=== PATIENT | female | born 1995 | race Caucasian/White ===

== ENCOUNTER 2018-01-09 15:43 | Emergency (ER) | payer OTHER ==
[2018-01-09] MEDS ORDERED: 0.9 % SODIUM CHLORIDE 1,000 ML IV SCH (16:00)
[2018-01-09] MEDS ORDERED: 0.9 % SODIUM CHLORIDE 1,000 ML IV ONE (16:11)
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
[2018-01-09 17:15] LABS: BASOPHILS % 0.2 (0.0-1.5); MEAN CORPUSCULAR HEMOGLOBIN 24.7 pg (28.0-34.0); MEAN CORPUSCULAR VOLUME 79.5 fl (80.0-100.0); MONOCYTES % 3.6 % (0.0-11.0)
[2018-01-09 17:33] LABS: eGFR (African) > 60; eGFR (Non-African) > 60
[2018-01-09 18:29] VITALS: BP 112/76
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
== END 2018-01-09 18:00 | disposition short-term general hospital (02) ==
LOC: ED 15:43
DX: S02.80XA Fracture of other specified skull and facial bones, unspecified side, initial encounter for closed fracture (principal); S02.19XA Other fracture of base of skull, initial encounter for closed fracture; V89.2XXA Person injured in unspecified motor-vehicle accident, traffic, initial encounter; Y93.9 Activity, unspecified; Y92.410 Unspecified street and highway as the place of occurrence of the external cause; Y99.9 Unspecified external cause status
CPT/HCPCS: 70450; 70486; 72125; 80053; 85025; 85610; 85730; J7030; 96365; 96366; 99284; S1016